=== PATIENT | male | born 1970 | race Caucasian/White ===

== ENCOUNTER 2023-12-22 08:43 | Outpatient (CLI) | payer OTHER ==
[2023-12-22] MEDS ORDERED: iohexol 350 MG/ML 50ML vial IV ONE (09:31)
[2023-12-22] MEDS ORDERED: iohexol 350MG/ML 100ml bottle IV ONE (09:31)
== END 2023-12-22 23:59 | disposition home or self-care (01) ==
LOC: 64 CT 08:43
PROVIDERS: ATTEND Internal Medicine Interventional Cardiology
DX: I71.40 Abdominal aortic aneurysm, without rupture, unspecified (principal); K80.20 Calculus of gallbladder without cholecystitis without obstruction; K76.0 Fatty (change of) liver, not elsewhere classified; I70.8 Atherosclerosis of other arteries; N20.0 Calculus of kidney; I70.213 Atherosclerosis of native arteries of extremities with intermittent claudication, bilateral legs
CPT/HCPCS: 75635; J3490; Q9967

== ENCOUNTER 2024-04-20 10:30 | Day surgery (SDC) | payer OTHER ==
[2024-04-16 11:26] LABS: BASOPHILS # (AUTO) 0.1 X10'3 (0-0.2); EOSINOPHILS # (AUTO) 0.2 X10'3 (0-0.9); EOSINOPHILS % (AUTO) 2.3 % (0-6); HEMATOCRIT 50.7 % (42.0-52.0); HEMOGLOBIN 17.7 g/dl (14.0-17.9); LYMPHOCYTES # (AUTO) 3.4 X10'3 (1.1-4.8); LYMPHOCYTES % (AUTO) 33.1 % (21-51); MEAN CORPUSCULAR HEMOGLOBIN 31.3 PG (27.0-31.0); MEAN CORPUSCULAR HGB CONC 34.9 g/dL (33.0-36.5); MEAN CORPUSCULAR VOLUME 89.5 FL (78-98); MEAN PLATELET VOLUME 9.5 FL (7.4-10.4); MONOCYTES # (AUTO) 0.6 X10'3 (0-0.9); MONOCYTES % (AUTO) 5.9 % (2-12); NEUTROPHILS % (AUTO) 57.7 % (42-75); PLATELET COUNT 226 X10'3 (140-440); RED BLOOD COUNT 5.66 X10'6 (4.70-6.10); RED CELL DISTRIBUTION WIDTH 14.6 % (11.5-14.5); WHITE BLOOD COUNT 10.3 X10'3 (4.5-11.0)
[2024-04-16 11:33] LABS: ALBUMIN 3.7 G/DL (3.4-5.0); ANION GAP 6 (8-16); BLOOD UREA NITROGEN 8 MG/DL (7-18); BUN/CREATININE RATIO 9.2 (10.0-20.0); CHLORIDE 105 MMOL/L (99-107); CREATININE 0.87 MG/DL (0.60-1.10); GLUCOSE 107 MG/DL (70-104); POTASSIUM 3.7 MMOL/L (3.5-5.1); SODIUM 140 MMOL/L (135-145); TOTAL CARBON DIOXIDE 29.5 MMOL/L (24-32); eGFR > 90 ML/MIN
[2024-04-16 11:36] LABS: APTT 27 SECONDS (22-32); PROTHROMBIN TIME 10.9 SECONDS (9.0-12.0)
[2024-04-20] VITALS (9 sets, daily range): BP systolic 117–163; BP diastolic 51–97; PULSE 56–69; RESP 16; TEMP 98.2; O2SAT 91–97
[~2024-04-20] VITALS: Ht 182.9 cm; Wt 121.3 kg
[2024-04-20] MEDS ORDERED: CELE-389 PO (11:30)
[2024-04-20] MEDS ORDERED: METO-384 PO (11:30)
[2024-04-20] MEDS ORDERED: METO-411 PO (11:30)
[2024-04-20] MEDS ORDERED: LOSA50TA64 PO (11:30)
[2024-04-20] MEDS ORDERED: TRAM50TA2 PO (11:30)
[2024-04-20] MEDS ORDERED: GABA600T13 PO (11:30)
[2024-04-20] MEDS ORDERED: ROSU40TA PO (11:30)
[2024-04-20] MEDS ORDERED: ALBU18HF2 INH (11:30)
[2024-04-20] MEDS ORDERED: FENO145T38 PO (11:30)
[2024-04-20] MEDS: LORazepam 0.5 MG tablet PO PRN (12:59)
[2024-04-20] MEDS: diphenhydrAMINE 25mg capsule PO PRN (12:59)
[2024-04-20] MEDS: normal saline 1,000 ML IV SCH (13:00)
[2024-04-20] MEDS ORDERED: midazolam 1 mg/ML 2ml injection ONE ×2 (13:39→14:32)
[2024-04-20] MEDS ORDERED: LIDOcaine 1% 30ml preserv. free vial ONE (13:39)
[2024-04-20] MEDS ORDERED: iohexol 350MG/ML 100ml bottle IV ONE ×2 (13:40→15:29)
[2024-04-20] MEDS ORDERED: heparin 1,000unit/ml 10ml vial 10 ML ONE (13:40)
[2024-04-20] MEDS ORDERED: fentaNYL/PF 50MCG/1 ML 2ML syringe ONE ×2 (13:40→15:45)
[2024-04-20] MEDS ORDERED: clopidogrel 300mg tablet ONE (15:44)
[2024-04-20] MEDS ORDERED: CLOP-32 PO (16:38)
[2024-04-20] MEDS ORDERED: ASPI81TA52 PO (16:38)
[2024-04-20] MEDS ORDERED: HYDROcodone/acetaminophen 5mg/325mg tablet PO PRN (16:40)
[2024-04-20] MEDS: HYDROcodone/acetaminophen 10/325mg tab PO PRN (16:54)
== END 2024-04-20 18:06 | disposition home or self-care (01) ==
LOC: SSTAY O 10:30
PROVIDERS: ATTEND Student in an Organized Health Care Education/Training Program
DX: I70.213 Atherosclerosis of native arteries of extremities with intermittent claudication, bilateral legs (principal); I10 Essential (primary) hypertension; E78.00 Pure hypercholesterolemia, unspecified; Z79.899 Other long term (current) drug therapy; Z88.0 Allergy status to penicillin; Z88.6 Allergy status to analgesic agent
CPT/HCPCS: 36415; 37226; 75625; 75716; 80048; 85025; 85610; 85730; 93005; 99152; 99153; C1725; C1769; C1876; J1644; J2250; J3010; J3490; J7030; Q0163; Q9967; 36245; 36247; A6258; C1760; C1894

== ENCOUNTER 2024-04-22 16:47 | Inpatient (IN) | payer OTHER ==
[~2024-04-22] VITALS: Ht 182.9 cm; Wt 120.5 kg
[2024-04-22] MEDS: temazepam 15mg capsule PO ONE (03:30)
[~2024-04-22 16:47] MED LIST: ALBU18HF2 INH; ASPI81TA52 PO; CELE-389 PO; CLOP-32 PO; FENO145T38 PO; GABA600T13 PO; LOSA50TA64 PO; METO-384 PO; METO-411 PO; ROSU40TA PO; TRAM50TA2 PO
[2024-04-22] MEDS: normal saline 1000ml 1,000 ML IV SCH (20:08)
[2024-04-22] MEDS: VANCOMYCIN 1,500MG inj. 1,500 MG in normal saline 500ml IV soln 300 ML IV SCH (20:10)
[2024-04-22] MEDS: morphine 4 MG/ML inj SYRINge IV ONE (20:12)
[2024-04-22 20:36] LABS: ALANINE AMINOTRANSFERASE 32 U/L (12-78); ALBUMIN 3.4 G/DL (3.4-5.0); ALKALINE PHOSPHATASE 77 IU/L (46-116); ANION GAP 7 (8-16); ASPARTATE AMINO TRANSFERASE 14 U/L (10-37); BILIRUBIN,TOTAL 0.6 MG/DL (0.1-1.0); BLOOD UREA NITROGEN 9 MG/DL (7-18); CALCIUM 9.4 MG/DL (8.5-10.1); CHLORIDE 102 MMOL/L (99-107); CREATININE 1.12 MG/DL (0.60-1.10); GLUCOSE 126 MG/DL (70-104); POTASSIUM 3.6 MMOL/L (3.5-5.1); SODIUM 137 MMOL/L (135-145); TOTAL CARBON DIOXIDE 28.5 MMOL/L (24-32); TOTAL PROTEIN 6.9 G/DL (6.4-8.2); eCRCL 84 ML/MIN; eGFR 69 ML/MIN
[2024-04-22 20:38] LABS: BASOPHILS # (AUTO) 0.1 X10'3 (0-0.2); BASOPHILS % (AUTO) 0.6 % (0-1); EOSINOPHILS # (AUTO) 0.4 X10'3 (0-0.9); EOSINOPHILS % (AUTO) 2.7 % (0-6); HEMATOCRIT 46.9 % (42.0-52.0); HEMOGLOBIN 15.9 g/dl (14.0-17.9); LYMPHOCYTES # (AUTO) 4.3 X10'3 (1.1-4.8); LYMPHOCYTES % (AUTO) 28.1 % (21-51); MEAN CORPUSCULAR HEMOGLOBIN 30.5 PG (27.0-31.0); MEAN CORPUSCULAR HGB CONC 33.8 g/dL (33.0-36.5); MEAN CORPUSCULAR VOLUME 90.2 FL (78-98); MEAN PLATELET VOLUME 9.9 FL (7.4-10.4); MONOCYTES # (AUTO) 1.3 X10'3 (0-0.9); MONOCYTES % (AUTO) 8.2 % (2-12); NEUTROPHILS # (AUTO) 9.3 X10'3 (1.8-7.7); NEUTROPHILS % (AUTO) 60.4 % (42-75); PLATELET COUNT 185 X10'3 (140-440); RED BLOOD COUNT 5.19 X10'6 (4.70-6.10); RED CELL DISTRIBUTION WIDTH 14.5 % (11.5-14.5); WHITE BLOOD COUNT 15.5 X10'3 (4.5-11.0)
[2024-04-22] MEDS ORDERED: potassium Cl 40MEQ/1/2NS 520ml 520 ML IV PRN (21:40)
[2024-04-22] MEDS ORDERED: ondansetron/PF 4mg/2ml inj IV PRN (21:40)
[2024-04-22] MEDS ORDERED: magnesium sulf-water 2g/50mL 50 ML IV PRN (21:40)
[2024-04-22] MEDS ORDERED: magnesium Cl slow-release 64mg tablet PO PRN (21:40)
[2024-04-22] MEDS ORDERED: magnesium sulf-water 4G/100mL 100 ML IV PRN (21:40)
[2024-04-22] MEDS ORDERED: potassium Cl 20 mEq SR tablet PO PRN (21:40)
[2024-04-22] MEDS ORDERED: acetaminophen 325mg tablet PO PRN (21:40)
[2024-04-22] MEDS ORDERED: normal saline 1000ml 1,000 ML IV SCH (21:40)
[2024-04-22] MEDS ORDERED: iohexol 350MG/ML 100ml bottle IV ONE (22:12)
[2024-04-23] MEDS: morphine 4 MG/ML inj SYRINge IV ONE (00:48)
[2024-04-23] MEDS: normal saline 1000ml 1,000 ML IV SCH (00:54)
[2024-04-23] MEDS: ringers solution, lacted 1,000 ML IV SCH (02:25)
[2024-04-23] MEDS: HYDROcodone/acetaminophen 5mg/325mg tablet PO PRN (03:29)
[2024-04-23] MEDS: K and/or MAG REPLACEMENT MC SCH (08:00)
[2024-04-23 08:34] LABS: BASOPHILS # (AUTO) 0.1 X10'3 (0-0.2); BASOPHILS % (AUTO) 0.5 % (0-1); EOSINOPHILS # (AUTO) 0.4 X10'3 (0-0.9); EOSINOPHILS % (AUTO) 3.4 % (0-6); HEMATOCRIT 45.3 % (42.0-52.0); HEMOGLOBIN 15.5 g/dl (14.0-17.9); LYMPHOCYTES # (AUTO) 3.9 X10'3 (1.1-4.8); LYMPHOCYTES % (AUTO) 30.9 % (21-51); MEAN CORPUSCULAR HEMOGLOBIN 31.3 PG (27.0-31.0); MEAN CORPUSCULAR HGB CONC 34.3 g/dL (33.0-36.5); MEAN CORPUSCULAR VOLUME 91.4 FL (78-98); MEAN PLATELET VOLUME 9.9 FL (7.4-10.4); MONOCYTES # (AUTO) 1.2 X10'3 (0-0.9); MONOCYTES % (AUTO) 9.6 % (2-12); NEUTROPHILS # (AUTO) 6.9 X10'3 (1.8-7.7); NEUTROPHILS % (AUTO) 55.6 % (42-75); PLATELET COUNT 189 X10'3 (140-440); RED BLOOD COUNT 4.96 X10'6 (4.70-6.10); RED CELL DISTRIBUTION WIDTH 14.2 % (11.5-14.5); WHITE BLOOD COUNT 12.5 X10'3 (4.5-11.0)
[2024-04-23 08:40] VITALS: RESP 18
[2024-04-23] MEDS: fenofibrate 145mg tablet PO SCH (08:43)
[2024-04-23] MEDS: losartan 50mg tablet PO SCH (08:44)
[2024-04-23] MEDS: aspirin 81mg, enteric-coated 1 TAB TABLET.DR PO SCH (08:44)
[2024-04-23] MEDS: vancomycin/NS 1 GM ADD-VANTAGE 250 ML IV SCH (08:46)
[2024-04-23] MEDS: clopidogrel 75mg tablet PO SCH (08:48)
[2024-04-23 09:04] LABS: ANION GAP 5 (8-16); BLOOD UREA NITROGEN 9 MG/DL (7-18); BUN/CREATININE RATIO 8.2 (10.0-20.0); CALCIUM 8.9 MG/DL (8.5-10.1); CHLORIDE 105 MMOL/L (99-107); GLUCOSE 101 MG/DL (70-104); POTASSIUM 3.8 MMOL/L (3.5-5.1); SODIUM 141 MMOL/L (135-145); TOTAL CARBON DIOXIDE 30.7 MMOL/L (24-32); eCRCL 85 ML/MIN; eGFR 70 ML/MIN
[2024-04-23 09:05] LABS: ALBUMIN 3.1 G/DL (3.4-5.0); CREATINE KINASE 137 U/L (39-308)
[2024-04-23 10:00] VITALS: BP 126/67; PULSE 72; TEMP 97
[2024-04-23 12:26] LABS: HEMOGLOBIN A1C 5.7 % (4.5-6.2)
[2024-04-23] MEDS: morphine 2 MG/ML inj. syringe IV PRN (12:38)
[2024-04-23] MEDS: ROSUVASTATIN CALCIUM 5 MG TABLET PO SCH (13:18)
[2024-04-23] MEDS: cefepime 2g/NS 100ml ADVANTAGE 100 ML IV SCH (14:08)
[2024-04-23 18:00] VITALS: BP 159/95; PULSE 83; RESP 17; TEMP 97.7; O2SAT 97
[2024-04-23 20:00] VITALS: RESP 17; O2SAT 97
[2024-04-23] MEDS: metoprolol succinate 25mg (24-HOUR) SR. Tablet PO SCH (21:38)
[2024-04-23 22:00] VITALS: BP 158/82; PULSE 91; RESP 20; TEMP 98.4; O2SAT 98
[2024-04-23] MEDS: gabapentin 300mg capsule PO SCH (23:09)
[2024-04-23] MEDS: Melatonin 3mg tablet PO PRN (23:10)
[2024-04-24 06:00] VITALS: BP 149/71; PULSE 68; RESP 20; TEMP 98.2; O2SAT 96
[2024-04-24] MEDS: VANCOMYCIN LEVEL IV ONE (07:30)
[2024-04-24 08:00] VITALS: RESP 20; O2SAT 96
[2024-04-24 08:40] LABS: BASOPHILS # (AUTO) 0.1 X10'3 (0-0.2); BASOPHILS % (AUTO) 0.6 % (0-1); EOSINOPHILS # (AUTO) 0.4 X10'3 (0-0.9); EOSINOPHILS % (AUTO) 4.4 % (0-6); HEMATOCRIT 42.4 % (42.0-52.0); HEMOGLOBIN 14.8 g/dl (14.0-17.9); LYMPHOCYTES # (AUTO) 2.5 X10'3 (1.1-4.8); LYMPHOCYTES % (AUTO) 24.8 % (21-51); MEAN CORPUSCULAR HEMOGLOBIN 31.2 PG (27.0-31.0); MEAN CORPUSCULAR HGB CONC 34.9 g/dL (33.0-36.5); MEAN CORPUSCULAR VOLUME 89.4 FL (78-98); MONOCYTES # (AUTO) 0.8 X10'3 (0-0.9); NEUTROPHILS # (AUTO) 6.4 X10'3 (1.8-7.7); NEUTROPHILS % (AUTO) 62.2 % (42-75); PLATELET COUNT 205 X10'3 (140-440); RED BLOOD COUNT 4.74 X10'6 (4.70-6.10); WHITE BLOOD COUNT 10.3 X10'3 (4.5-11.0)
[2024-04-24 08:52] LABS: ANION GAP 8 (8-16); BLOOD UREA NITROGEN 10 MG/DL (7-18); CALCIUM 8.7 MG/DL (8.5-10.1); CHLORIDE 106 MMOL/L (99-107); CREATININE 0.83 MG/DL (0.60-1.10); GLUCOSE 106 MG/DL (70-104); POTASSIUM 3.5 MMOL/L (3.5-5.1); SODIUM 140 MMOL/L (135-145); TOTAL CARBON DIOXIDE 26.4 MMOL/L (24-32); eCRCL 113 ML/MIN; eGFR > 90 ML/MIN
[2024-04-24 10:00] VITALS: BP 158/72; PULSE 71; RESP 17; TEMP 96.7; O2SAT 97
[2024-04-24] MEDS ORDERED: losartan 25mg tablet PO SCH (15:00)
[2024-04-24 18:00] VITALS: BP 163/74; PULSE 68; RESP 20; TEMP 97.8; O2SAT 99
[2024-04-24 20:00] VITALS: RESP 20; O2SAT 99
[2024-04-24 22:00] VITALS: BP 140/75; PULSE 77; RESP 20; TEMP 97.7; O2SAT 96
[2024-04-25] MEDS ORDERED: VANCOmycin 1250MG/NS 250ml Bag 250 ML IV SCH
[2024-04-25 05:30] VITALS: BP 181/98; PULSE 67
[2024-04-25] MEDS: hydrALAZINE 20mg/ml inj. IV PRN (05:31)
[2024-04-25 06:00] VITALS: BP 181/98; PULSE 69; RESP 16; TEMP 97.8; O2SAT 98
[2024-04-25 06:40] LABS: ALBUMIN 2.9 G/DL (3.4-5.0); ANION GAP 8 (8-16); BLOOD UREA NITROGEN 8 MG/DL (7-18); BUN/CREATININE RATIO 8.5 (10.0-20.0); CALCIUM 8.6 MG/DL (8.5-10.1); CHLORIDE 105 MMOL/L (99-107); CREATININE 0.94 MG/DL (0.60-1.10); GLUCOSE 156 MG/DL (70-104); POTASSIUM 3.4 MMOL/L (3.5-5.1); SODIUM 141 MMOL/L (135-145); TOTAL CARBON DIOXIDE 28.3 MMOL/L (24-32); eCRCL 100 ML/MIN; eGFR 84 ML/MIN
[2024-04-25 07:16] LABS: BASOPHILS # (AUTO) 0.1 X10'3 (0-0.2); BASOPHILS % (AUTO) 0.6 % (0-1); EOSINOPHILS # (AUTO) 0.5 X10'3 (0-0.9); EOSINOPHILS % (AUTO) 4.7 % (0-6); HEMOGLOBIN 14.5 g/dl (14.0-17.9); LYMPHOCYTES # (AUTO) 3.1 X10'3 (1.1-4.8); LYMPHOCYTES % (AUTO) 29.7 % (21-51); MEAN CORPUSCULAR HEMOGLOBIN 30.8 PG (27.0-31.0); MEAN CORPUSCULAR HGB CONC 33.8 g/dL (33.0-36.5); MEAN CORPUSCULAR VOLUME 91.1 FL (78-98); MEAN PLATELET VOLUME 9.6 FL (7.4-10.4); MONOCYTES # (AUTO) 0.6 X10'3 (0-0.9); MONOCYTES % (AUTO) 6.1 % (2-12); NEUTROPHILS # (AUTO) 6.1 X10'3 (1.8-7.7); NEUTROPHILS % (AUTO) 58.9 % (42-75); PLATELET COUNT 213 X10'3 (140-440); RED BLOOD COUNT 4.72 X10'6 (4.70-6.10); WHITE BLOOD COUNT 10.4 X10'3 (4.5-11.0)
[2024-04-25] MEDS: linezolid 600mg tablet PO SCH (07:59)
[2024-04-25 08:00] VITALS: RESP 16; O2SAT 98
[2024-04-25 10:00] VITALS: BP 163/89; PULSE 66; RESP 17; TEMP 97.4; O2SAT 98
[2024-04-25] MEDS ORDERED: LINE600T14 PO (10:10)
[2024-04-25] MEDS: potassium Cl 20 mEq SR tablet PO PRN (11:03)
[2024-04-25] MEDS ORDERED: LINE600T11 PO (14:56)
[2024-04-25] MEDS ORDERED: VANCOMYCIN LEVEL IV ONE (23:30)
== END 2024-04-25 14:10 | disposition home or self-care (01) | DRG 603 ==
LOC: ER 16:48 → ED HOLD 21:43 → EDBEDREQ 04-23 04:18 → SUR 3N 04-23 07:15
PROVIDERS: ADMIT Internal Medicine Sleep Medicine; ATTEND Nurse Practitioner Family
PROC: B4201ZZ Computerized Tomography (CT Scan) of Abdominal Aorta using Low Osmolar Contrast (ICD-10-PCS; principal; 2024-04-22)
PROC: B4241ZZ Computerized Tomography (CT Scan) of Superior Mesenteric Artery using Low Osmolar Contrast (ICD-10-PCS; 2024-04-22)
PROC: B4281ZZ Computerized Tomography (CT Scan) of Bilateral Renal Arteries using Low Osmolar Contrast (ICD-10-PCS; 2024-04-22)
PROC: B42C1ZZ Computerized Tomography (CT Scan) of Pelvic Arteries using Low Osmolar Contrast (ICD-10-PCS; 2024-04-22)
PROC: B4211ZZ Computerized Tomography (CT Scan) of Celiac Artery using Low Osmolar Contrast (ICD-10-PCS; 2024-04-22)
PROC: B42H1ZZ Computerized Tomography (CT Scan) of Bilateral Lower Extremity Arteries using Low Osmolar Contrast (ICD-10-PCS; 2024-04-22)
DX: L03.116 Cellulitis of left lower limb (principal); N17.9 Acute kidney failure, unspecified; L02.416 Cutaneous abscess of left lower limb; I10 Essential (primary) hypertension; E78.5 Hyperlipidemia, unspecified; I73.9 Peripheral vascular disease, unspecified; G62.9 Polyneuropathy, unspecified; Z68.36 Body mass index [BMI] 36.0-36.9, adult; E86.0 Dehydration; E87.6 Hypokalemia; E66.812 Obesity, class 2; M25.462 Effusion, left knee; Q63.1 Lobulated, fused and horseshoe kidney; Z88.0 Allergy status to penicillin; Z88.6 Allergy status to analgesic agent; Z79.02 Long term (current) use of antithrombotics/antiplatelets; Z79.899 Other long term (current) drug therapy; Z87.442 Personal history of urinary calculi; Z87.891 Personal history of nicotine dependence; Z79.82 Long term (current) use of aspirin
CPT/HCPCS: 36415; 73564; 73706; 80048; 80053; 80202; 82550; 83036; 83605; 84145; 85025; 87040; 87081; 93971; 96365; 97161; 97530; 99285; G0378; J0360; J0692; J2270; J3370; J7030; J7040; J7120; Q9967